=== PATIENT | male | born 1990 | race Asian ===

== ENCOUNTER 2017-03-04 17:32 | Emergency (ER) | payer OTHER ==
[~2017-03-04] VITALS: Ht 162.6 cm; Wt 75.0 kg
[2017-03-04 18:13] LABS: BASOPHILS % (AUTO) 0.2 % (0.0-2.0); EOSINOPHILS % (AUTO) 0 % (1.0-6.0); HEMATOCRIT 48.6 % (41-53); HEMOGLOBIN 16.9 g/dL (13.5-17.5); LYMPHOCYTES # (AUTO) 1.1 K/uL (1.0-4.8); LYMPHOCYTES % (AUTO) 10.4 % (22.0-44.0); MEAN CORPUSCULAR HEMOGLOBIN 30.8 pg (26.0-34.0); MEAN CORPUSCULAR HGB CONC 34.8 G/dL (31.0-37.0); MEAN CORPUSCULAR VOLUME 89 fL (80-100); MONOCYTES # (AUTO) 0.7 K/uL (0.1-1.0); MONOCYTES % (AUTO) 6.5 % (2.0-9.0); NEUTROPHILS # (AUTO) 8.5 K/uL (1.8-7.7); NEUTROPHILS % (AUTO) 82.9 % (40.0-70.0); PLATELET COUNT (AUTO) 182 K/uL (150-450); RED BLOOD CELL COUNT(AUTO) 5.48 MIL/uL (4.50-5.90); WHITE BLOOD COUNT (AUTO) 10.2 K/uL (4.5-11.0)
[2017-03-04 18:17] LABS: CALCIUM, TOTAL 9.6 mg/dL (8.8-10.5); CREATININE 1.43 mg/dL (0.60-1.30)
[2017-03-04 18:23] LABS: ALBUMIN 4.5 g/dL (3.4-5.0); BILIRUBIN,TOTAL 0.9 mg/dL (0.1-1.0)
[2017-03-04 19:42] LABS: APPEARANCE,URINE CLEAR (CLEAR); GLUCOSE, URINE (UA) NEGATIVE (NEGATIVE); KETONES,URINE NEGATIVE (NEGATIVE); LEUKOCYTE ESTERASE ,URINE NEGATIVE (NEGATIVE); OCCULT BLOOD,URINE NEGATIVE (NEGATIVE); PROTEIN,URINE POS 1+ (NEGATIVE)
[2017-03-04 19:43] LABS: ADD UA MICROSCOPIC NO
[2017-03-04] MEDS ORDERED: IBUPROFEN 800 MG TABLET PO ONE (20:00)
[2017-03-04 20:45] VITALS: BP 131/82
== END 2017-03-04 20:51 | disposition home or self-care (01) ==
LOC: EMS 17:33
DX: M54.5 Low back pain (principal); R53.83 Other fatigue; M79.1 Myalgia
CPT/HCPCS: 93005; 99285

== ENCOUNTER 2017-07-27 03:09 | Emergency (ER) | payer OTHER ==
[~2017-07-27] VITALS: Ht 167.6 cm; Wt 73.6 kg
[2017-07-27 03:11] VITALS: BP 130/90
[2017-07-27] MEDS ORDERED: BUPIVACAINE HCL/PF 0.25% 10 ML VIAL INJ ONE (03:30)
== END 2017-07-27 03:54 | disposition home or self-care (01) ==
LOC: EMS 03:10
DX: K02.9 Dental caries, unspecified (principal)
CPT/HCPCS: 64400; 99284; J3490; 99283

== ENCOUNTER 2019-01-06 21:16 | Emergency (ER) | payer OTHER ==
[~2019-01-06] VITALS: Ht 167.6 cm; Wt 79.5 kg
[2019-01-06 22:11] VITALS: BP 138/79
[2019-01-06] MEDS ORDERED: IBUPROFEN 800 MG TABLET PO ONE (22:15)
[2019-01-06] MEDS ORDERED: PENICILLIN V POTASSIUM 500 MG TABLET PO ONE (22:15)
== END 2019-01-06 22:28 | disposition home or self-care (01) ==
LOC: EMS 21:18
DX: K02.9 Dental caries, unspecified (principal)

== ENCOUNTER 2019-05-02 05:30 | Emergency (ER) | payer OTHER ==
[~2019-05-02] VITALS: Ht 167.6 cm; Wt 79.5 kg
[2019-05-02 05:58] VITALS: BP 150/96
== END 2019-05-02 06:49 | disposition home or self-care (01) ==
LOC: EMS 05:30
DX: K02.9 Dental caries, unspecified (principal)

== ENCOUNTER 2019-11-19 03:46 | Emergency (ER) | payer OTHER ==
[~2019-11-19] VITALS: Ht 167.6 cm; Wt 77.3 kg
[2019-11-19] MEDS ORDERED: HYDROCODONE/ACETAMINOPHEN 5-325 MG TABLET PO ONE (04:30)
[2019-11-19] MEDS ORDERED: PENICILLIN V POTASSIUM 500 MG TABLET PO ONE (04:30)
[2019-11-19 05:00] VITALS: BP 129/88
== END 2019-11-19 05:05 | disposition home or self-care (01) ==
LOC: EMS 03:46
DX: K04.01 Reversible pulpitis (principal)

== ENCOUNTER 2021-03-06 22:18 | Emergency (ER) | payer OTHER ==
[~2021-03-06] VITALS: Ht 172.7 cm; Wt 71.0 kg
[2021-03-06 23:15] VITALS: BP 128/74
[2021-03-07] MEDS ORDERED: METHOCARBAMOL 500 MG TABLET PO ONE (00:15)
[2021-03-07] MEDS ORDERED: METHOCARBAMOL 750 MG TABLET PO ONE (00:15)
[2021-03-07] MEDS ORDERED: IBUPROFEN 600 MG TABLET PO ONE (00:15)
== END 2021-03-07 00:50 | disposition home or self-care (01) ==
LOC: EMS 22:19
DX: S39.012A Strain of muscle, fascia and tendon of lower back, initial encounter (principal); X50.0XXA Overexertion from strenuous movement or load, initial encounter; Y93.89 Activity, other specified; Y92.89 Other specified places as the place of occurrence of the external cause; Y99.8 Other external cause status
CPT/HCPCS: 99283

== ENCOUNTER 2021-04-22 06:27 | Emergency (ER) | payer OTHER ==
[~2021-04-22] VITALS: Ht 167.6 cm; Wt 77.3 kg
[2021-04-22] MEDS ORDERED: IBUPROFEN 600 MG TABLET PO ONE (07:45)
[2021-04-22 08:53] VITALS: BP 118/87
== END 2021-04-22 08:55 | disposition home or self-care (01) ==
LOC: EMS 06:28
DX: S63.502A Unspecified sprain of left wrist, initial encounter (principal); W19.XXXA Unspecified fall, initial encounter; Y93.89 Activity, other specified; Y92.89 Other specified places as the place of occurrence of the external cause; Y99.8 Other external cause status
CPT/HCPCS: 99284; 73030-TC; 73110-TC; Z7502; Z7610